=== PATIENT | female | born 1950 | race African-American/Black ===

== ENCOUNTER → 2020-05-23 10:29 | Outpatient (BNVA) | payer OTHER, SELFPAY | PROVIDERS: Visit Provider Internal Medicine Gastroenterology | DX: K29.70 Gastritis, unspecified, without bleeding (principal); K76.0 Fatty (change of) liver, not elsewhere classified | CPT/HCPCS: Q3014 ==

== ENCOUNTER 2024-09-07 15:11 | Emergency (ER) | payer OTHER, SELFPAY ==
--- NOTE | ~2024-09-07 | XR_ITS ---
EXAMINATION: XR ANKLE, RIGHT CLINICAL INFORMATION: wound medial ankle COMPARISON: None available. TECHNIQUE: AP, lateral, and mortise views of the right ankle. FINDINGS: No fracture. Alignment is anatomic. No erosions. Joint spaces are maintained. Mortise is intact. Talar dome is normal. Tiny plantar calcaneal spur. No ankle joint effusion. Soft tissues are normal. XR/XR ankle RT 2V IMPRESSION: Normal right ankle. Electronically signed by: Jorgito Hunter MD 09/07/2024 04:34 PM EDT
[2024-09-07 15:25] VITALS: BP 138/78; BP 168/86; PULSE 89; PULSE 91; RESP 18; TEMP 36.9; O2SAT 100; BMI 35.4
--- NOTE | 2024-09-07 15:32 | ED.WOUNDLAC ---
HPI - Wound/Laceration General Chief Complaint: Wound/Laceration Stated Complaint: Right Ankle wound Time Seen by Provider: 09/07/24 15:30 Source: patient, RN notes reviewed and old records reviewed Mode of arrival: ambulatory Limitations: no limitations History of Present Illness ED Provider: Juana HPI narrative: Patient is a 73-year-old female with history of SLE, hepatic steatosis presenting to the emergency department from assisted living with complaint of wound to right ankle. States initially developed as a small abscess. She saw her PCP who put her on a 10-day course of doxycycline. She reports that the infection did not improve with the doxycycline, so she was started on keflex. She will finish the course of keflex on Thursday, 09/09. Denies fevers, chilss, body aches. Reports pain is severe and radiates up lower leg. Onset (ago): day(s) Associated symptoms: pain Treatments prior to arrival: other Related Data Home Medications ?Medication ?Instructions ?Recorded ?Confirmed budesonide-formoterol HFA 160 2 puff inhalation BID 05/23/20 05/26/20 mcg-4.5 mcg/actuation aerosol inhaler (Symbicort) calcium carbonate (Calcium 600) 600 mg PO DAILY 05/23/20 05/26/20 ceramides 1,3,6-II (CeraVe topical 1 appl topical BID-QID PRN 05/23/20 05/26/20 cream) cholecalciferol (vitamin D3) 50 50 mcg PO DAILY 05/23/20 05/26/20 mcg (2,000 unit) tablet diclofenac sodium 1 % topical gel 2 g topical QID 05/23/20 05/26/20 gabapentin 400 mg capsule 400 mg PO TID 05/23/20 05/26/20 mecobalamin (vitamin B12) 5,000 250 mcg PO DAILY 05/23/20 05/26/20 mcg lozenge omeprazole 40 mg capsule,delayed 40 mg PO DAILY 05/23/20 05/26/20 release oxygen-air delivery systems ##1 05/23/20 05/26/20 vitamin E 200 unit capsule 200 unit PO DAILY 05/23/20 05/26/20 Allergies Allergy/AdvReac Type Severity Reaction Status Date / Time aspirin [ASPIRIN] Allergy Unknown CHEST Verified 09/07/24 15:30 PAIN, SOB caffeine [CAFFEINE] Allergy Unknown CHEST PAIN Verified 09/07/24 15:30 Iodinated Contrast Media Allergy Unknown RASH Verified 09/07/24 15:30 [IV CONTRAST] iodine [IODINE] Allergy Unknown RASH, Verified 09/07/24 15:30 hives, latex [LATEX] Allergy Unknown RASH Verified 09/07/24 15:30 meperidine [From DEMEROL] Allergy Unknown VOMITING Verified 09/07/24 15:30 naproxen [NAPROXEN] Allergy Unknown VOMITING Verified 09/07/24 15:30 nickel [NICKEL] Allergy Unknown RASH,ITCHY Verified 09/07/24 15:30 penicillin V Allergy Unknown SOB, hives Verified 09/07/24 15:30 Penicillins [PENICILLINS] Allergy Unknown RASH Verified 09/07/24 15:30 strawberry [STRAWBERRY] Allergy Unknown RASH Verified 09/07/24 15:30 NSAIDS (Non-Steroidal AdvReac Intermediate DIARRHEA Verified 09/07/24 15:30 Anti-Inflamma [NSAIDS (NON-STEROIDAL ANTI-INFLAMMA] caffeine Allergy Unknown Rash Uncoded 09/07/24 15:30 IVP dye Allergy Unknown Hives Uncoded 09/07/24 15:30 Latex Allergy Unknown Hives Uncoded 09/07/24 15:30 Latex Gloves Allergy Unknown rash, Uncoded 05/20/19 00:00 itching nickel Allergy Unknown Hives Uncoded 09/07/24 15:30 srawberries Allergy Unknown Hives Uncoded 09/07/24 15:30 Review of Systems Review of Systems: As per HPI Yes all other systems are reviewed and are negative Constitutional: Constitutional: Reports as per HPI PMFSH Past Medical History Medical History (Updated 09/07/24 @ 16:50 by Bhargavi Arias NP) Systemic lupus erythematosus (SLE) in adult Gastritis Hepatic steatosis Surgical History (Updated 05/26/20 @ 14:38 by Kitty White MD) History of esophagogastroduodenoscopy (EGD) Hx of colonoscopy Family History Family History (Updated 05/23/20 @ 10:38 by VEENA Garcia) Father Hypertension Stroke Mother Hypertension Asthma Rheumatoid arthritis Brother No problems noted. Sister Breast cancer Social History Social History (Updated 05/23/20 @ 10:39 by VEENA Garcia) Household Members: None Alcohol intake: never Advance Directives: No Advance Directives Information Provided: No Current occupational status: retired and disabled Physical Exam Vital Signs: Vital Signs: Last Vital Signs Temp 98.4 F 09/07/24 15:25 Pulse 89 09/07/24 15:25 Resp 18 09/07/24 15:25 BP 138/78 09/07/24 15:25 Pulse Ox 100 09/07/24 15:25 O2 Del Method Room Air 09/07/24 15:25 BMI result Body Mass Index 35.4 Vital signs have been reviewed and appear to be correct. Blood pressure normal. Heart rate normal. Respiratory rate normal. Temperature normal. Oxygen saturation normal. Const: General: cooperative, healthy appearing and no acute distress Orientation/consciousness: oriented to person, oriented to place, oriented to time and patient oriented x3 Limitations: no limitations HEENT: Head: Yes normocephalic and Yes atraumatic Ears: external ears normal General nose exam: Normal external nose present Face and sinus: Yes face symmetric Mouth: oropharynx normal and moist mucous membranes Throat: Yes uvula midline Eyes: Pupils: Equal, round and reactive pupils present Neck: Neck: Yes normal visual inspection and Yes supple Resp: Effort & Inspection: normal respiratory effort and able to speak in complete sentences Auscultation: clear to auscultation bilaterally Cardio: Rate: regular rate Rhythm: regular rhythm Heart sounds: S1 normal heart sound present and S2 normal heart sound present GI: Palpation (GI): Soft to palpation and nontender Auscultation: normoactive bowel sounds : General: Yes no CVA tenderness Back/Spine/Pelvis: Back: no CVA tenderness Skin: Other: 1cm diameter open wound to medial right ankle without surrounding erythema or warmth, scant amount of purulent drainage, see photo General skin exam: elasticity normal and turgor normal Neuro: General: oriented to person, oriented to place, oriented to time, patient oriented x3, moves all extremities, no focal motor deficits and CN's II-XI intact bilaterally Cranial nerves: Yes Equal, round and reactive pupils present Cognition (Neuro): normal cognition Extrem: General: Yes full ROM, Yes no pedal edema and Yes no calf tenderness Psych: Mental Status: mental status grossly normal Affect: normal affect Thought process: Normal thought process present Medical Decision Making Medical Decision Making MDM Narrative: Patient is a 73-year-old female with history of SLE, hepatic steatosis presenting to the emergency department from assisted living with complaint of wound to right ankle. On exam patient is awake, A+Ox3, VS WNL, afebrile, normal neurological exam without focal deficits, physical exam findings as above. Given reported symptoms and physical exam findings, initial differential includes but is not limited to wound, cellulitis, osteomyelitis. Labs notable for no leukocytosis or left shift, normal lactic, normal ESR/CRP. X-ray right ankle notable for no evidence of osteomyelitis. My interpretation is in agreement with the radiologist's interpretation. Wound does not appear cellulitic on exam. Results discussed with patient and all questions answered. Advised patient that wound appears to be healing appropriately, but that she should complete the full course of cephalexin as prescribed. Wound culture obtained, patient will be contacted with any positive results. Return precautions discussed at bedside. Patient verbalized understanding of and agreement with plan. Differential Diagnosis Differential Diagnoses: The differential diagnosis associated with the presentation includes As per [facility] Admission/Observation Consideration of admission/observation: Escalation of care including admission/observation considered Patient would have been admitted to the hospital had their work up had any findings where hospital admission was appropriate and their clinical presentation warranted hospital admission. Lab Data [facility] Lab Attestation statement: I reviewed the patient's lab results. As per [facility] 09/07/24 16:11 09/07/24 16:11 Labs: Lab Results 09/07/24 Range/Units 16:11 WBC 6.2 (4.8-10.8) X10*3/uL RBC 3.74 L (4.20-5.50) X10*6/uL Hgb 10.9 L (12.0-16.0) g/dl Hct 31.1 L (37.0-47.0) % MCV 83.2 (80.0-98.0) fL MCH 29.1 (27.0-33.0) pg MCHC 35.0 (31.0-35.0) g/dl RDW 16.5 H (11.0-16.0) % Plt Count 191 (160-400) X10*3/uL MPV 12.0 (9.4-12.3) fL Immature Gran % (Auto) 0.3 (0.0-0.4) % Neut % (Auto) 69.6 (45-73) % Lymph % (Auto) 18.7 L (20-40) % Falls % (Auto) 9.2 (2-11) % Eos % (Auto) 1.6 (0-4) % Baso % (Auto) 0.6 (0-2) % Lymph # (Auto) 1.2 (1.2-4.9) X10*3/uL Falls # (Auto) 0.6 (0.1-1.2) X10*3/uL Eos # (Auto) 0.1 (0.0-0.4) X10*3/uL Baso # (Auto) 0.0 (0.0-0.2) X10*3/uL Abs Immat Gran (auto) 0.02 (0.00-0.03) X10*3/uL Absolute Neuts (auto) 4.3 (2.0-8.3) x10*3/uL Absolute Nucleated RBC 0.000 (0.0-0.012) X10*3/uL Nucleated RBC % (auto) 0.0 (0.0-0.2) /100WBC Sodium 145 (135-145) mmol/L Potassium 4.1 (3.3-5.1) mmol/L Chloride 113 H (96-108) mmol/L Carbon Dioxide 23 (22-29) mmol/L Anion Gap 13 (12-20) BUN 12 (9-16) mg/dL Creatinine 0.88 (0.5-1.4) mg/dL Estim Creat Clear Calc 59.0 Estimated GFR > 60 Random Glucose 84 (60-115) mg/dL Lactic Acid 0.8 (0.5-2.0) mmol/L Calcium 9.8 (8.4-10.2) mg/dL Total Bilirubin 0.5 (0.0-1.0) mg/dL AST 32 H (5-31) U/L ALT 22 (0-31) U/L C-Reactive Protein 0.24 (< or = 0.50) mg/dL Total Protein 7.2 (6.5-8.0) g/dL Albumin 4.3 (3.5-5.0) g/dL Independent Interpretation I performed an independent interpretation of an: Plain X-Ray Interpretation: No evidence of osteomyelitis on x-ray right ankle. Radiology Impression Discussion of test interpretation with radiology: I have reviewed the radiologist's reading. Radiologist Impression: XR/XR ankle RT 2V IMPRESSION: Normal right ankle. External Record Review External record reviewed: Inpatient record, Office record and Outpatient record Discharge Plan Discharge Clinical Impression: Wound of right ankle Patient Disposition: Home, Self-Care Instructions: Acute Wounds (DC) Additional Instructions: You were evaluated in the emergency department today for a wound to your right ankle. The wound appears to be healing appropriately and your labs were reassuring. Your x-ray did not show any evidence of infection in your bone. We recommend that you complete the full course of cephalexin (Keflex) prescribed to you previously. A wound culture was obtained at your visit today, you will be contacted if any changes in your treatment needs to be made. Follow up with your primary care provider. Return to the emergency department if you develop new redness, swelling, thick yellow drainage, redness streaking up your leg, fever, or any other new or concerning symptoms. Prescriptions: No Action calcium carbonate [Calcium 600] 600 mg calcium (1,500 mg) tablet 600 mg PO DAILY cholecalciferol (vitamin D3) 50 mcg (2,000 unit) tablet 50 mcg PO DAILY gabapentin 400 mg capsule 400 mg PO TID CeraVe Cream 1 appl topical BID-QID PRN budesonide-formoterol [Symbicort] 160-4.5 mcg/actuation HFA aerosol inhaler 2 puff inhalation BID omeprazole 40 mg capsule,delayed release(DR/EC) 40 mg PO DAILY diclofenac sodium 1 % gel 2 g topical QID Rx Instructions: apply to single elbow, wrist or hand; for hand includes palm/fingers/back of hand mecobalamin (vitamin B12) 5,000 mcg lozenge 250 mcg PO DAILY Rx Instructions: allow to dissolve in mouth OR may chew lightly before swallowing vitamin E 200 unit capsule 200 unit PO DAILY (DME) oxygen-air delivery systems Device See Rx Instructions .ROUTE .MEDSUPPLY Qty: 1 Rx Instructions: As directed Print Language: Mongolian
[2024-09-07 16:18] LABS: MANUAL DIFF FLAG NO
[2024-09-07 16:21] LABS: Basophils Percent Auto 0.6 % (0-2); Eosinophils Absolute Auto 0.1 X10*3/uL (0.0-0.4); Eosinophils Percent Auto 1.6 % (0-4); Hematocrit 31.1 % (37.0-47.0); Hemoglobin 10.9 g/dl (12.0-16.0); Imm Gran Abs Auto 0.02 X10*3/uL (0.00-0.03); Imm Gran Pct Auto 0.3 % (0.0-0.4); Lymphocytes Absolute Auto 1.2 X10*3/uL (1.2-4.9); Lymphocytes Percent Auto 18.7 % (20-40); Mean Corpuscular Hemoglobin 29.1 pg (27.0-33.0); Mean Corpuscular Volume 83.2 fL (80.0-98.0); Monocytes Absolute Auto 0.6 X10*3/uL (0.1-1.2); Monocytes Percent Auto 9.2 % (2-11); Neutrophils Absolute Auto 4.3 x10*3/uL (2.0-8.3); Neutrophils Percent Auto 69.6 % (45-73); Platelet Count 191 X10*3/uL (160-400); Red Blood Count 3.74 X10*6/uL (4.20-5.50); Red Cell Distribution Width 16.5 % (11.0-16.0); White Blood Count 6.2 X10*3/uL (4.8-10.8)
[2024-09-07 16:34] LABS: Lactic Acid 0.8 mmol/L (0.5-2.0)
[2024-09-07 16:36] LABS: Alanine Aminotransferase 22 U/L (0-31); Albumin Level 4.3 g/dL (3.5-5.0); Anion Gap 13 (12-20); Aspartate Amino Transferase 32 U/L (5-31); Bilirubin Total 0.5 mg/dL (0.0-1.0); Blood Urea Nitrogen 12 mg/dL (9-16); C Reactive Protein 0.24 mg/dL (< or = 0.50); Calcium 9.8 mg/dL (8.4-10.2); Carbon Dioxide 23 mmol/L (22-29); Chloride 113 mmol/L (96-108); Estimated Glomerular Filt Rate > 60; Glucose Random 84 mg/dL (60-115); Potassium 4.1 mmol/L (3.3-5.1); Sodium 145 mmol/L (135-145); Total Protein 7.2 g/dL (6.5-8.0)
[2024-09-07 16:42] LABS: Alkaline Phosphatase 82 U/L (39-117)
[2024-09-07 17:05] VITALS: BP 109/46; PULSE 83; RESP 14; TEMP 37; O2SAT 100
[2024-09-07 17:08] VITALS: BP 109/46; PULSE 83; RESP 14; TEMP 37; O2SAT 100
[2024-09-07 17:35] LABS: Erythrocyte Sedimentation Rate 31 MM/HR (0-20)
--- OUTSIDE RECORDS SUMMARY | 2024-09-07 18:09 | XMS_ITS ---
Author Organization [facility] Address [address] [address] Phone Care Team Providers Care Hunting Sales Leader Name Role Phone Malgorzata Blanton TERRAZZO WORKER APPRENTICE Primary Care Provider [phone] Program of [facility] Status:Enrolled (Active) Start date:02/06/2019 Enrollment date:02/06/2019 Related social drivers of health:Housing Instability, Financial Risk, Transportation, Social Isolation, Food Risk Overview This episode will track PACE documentation. Case Team Name Relationship Phone Malgorzata Blanton TERRAZZO WORKER APPRENTICE Nurse Practitioner Elsa Go Recreational Therapist Fani Bartlett RN Recording Studio Set Up Worker Yasemin Kern MEAT LUGGER Legal Operations Manager Michael Mascorro RD Dietitian Charli Byrne PT Physical Therapist Aries Mcknight [place] Yam Curer Dinorah Crow Asbestos Worker Helper Abdoul Joseph Spiritual Care Izabela Ling OT Occupational Therapist Nettie Chawla RN Registered Nurse [place]io MD Covering Physician Continued Care and Services Coordination
--- OUTSIDE RECORDS SUMMARY | 2024-09-07 18:09 | XMS_ITS | Clinical Summary ---
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 Name Role Phone Malgorzata Blanton BINDER FIXER Primary Care Provider [phone] Allergies Active Allergy Reactions Criticality Noted Date Comments Aspirin 07/01/2024 GI UPSET, HIVES, vasoconstriction Meperidine 07/01/2024 GI UPSET, HIVES, HEADACHE Iodine 07/01/2024 IODINE AND RELATED COMPOUNDS CLASSIFICATION, GI UPSET, HIVES, HEADACHE Lactose 07/01/2024 Latex 07/01/2024 Nickel 07/01/2024 Nsaids (Non-Steroidal Anti-Inflammatory Drug) 07/01/2024 GI UPSET, HIVES- pud, bleeding ulcer in 2008 Other 07/01/2024 Caffine, Camomile, Lactose, Penicillins 07/01/2024 GI UPSET, HIVES [facility] 07/01/2024 Tramadol 07/01/2024 ppt reports vomiting Medications red [id number] [id number] mg capsuleIndicati ons:Peripheral vascular disease (CMS/HCC),Ather osclerosis of [place] artery of both lower extremities, with unspecified presence of clinical manifestation,H ypercholesterol emia Take 1 capsule by mouth 1 (one) time each day for 28 days. 100 capsule 3 08/20/19 25 2024 Active calcium carbonate-vitam in D3 600 mg-20 mcg (800 unit) tabletIndicatio ns:Other specified disorders of bone density and structure, multiple sites,Osteopeni a of lumbar spine Take 1 each by mouth 2 (two) times daily after breakfast and lunch for 28 days. 1 tab(s) orally ONCE DAILY 56 tablet 11 08/20/19 25 2024 Active ceramides cream (CERAVE) cream moisturizing creamIndication s:Dry skin Apply topically if needed (may use as needed for dry skin). ceramides 1,3,6-II (CeraVe) - cream 1 application to (affected) skin 2 times per day 200 g 3 08/20/19 25 2024 Active ferrous gluconate (FERGON) 324 mg (38 mg iron) tabletIndicatio ns:Anemia, pernicious Take 1 tablet (324 mg total) by mouth 1 (one) time each day. 90 each 08/20/19 25 2025 Active cephalexin (KEFLEX) 250 mg capsuleIndicati ons:Cellulitis of right ankle Take 2 capsules (500 mg total) by mouth 2 (two) times a day for 7 days. 28 each 09/02/19 25 2024 Active calcium carbonate-vitam in D3 600 mg-20 mcg (800 unit) tablet 1 tab(s) orally ONCE DAILY 2024 Discontinued ceramides cream (CERAVE) cream moisturizing cream ceramides 1,3,6-II (CeraVe) - cream 1 application to (affected) skin 2 times per day 2024 Discontinued(R eorder) cholecalciferol (Vitamin D3) 25 mcg (1,000 unit) tablet 1 tab(s) orally once a day 2024 Discontinued(T herapy completed) cyanocobalamin (VITAMIN B-12) 250 mcg tablet 1 tab by mouth daily 2024 Discontinued(T herapy completed) gabapentin (NEURONTIN) 400 mg capsule 1 cap(s) orally TID AM, NOON, HS 2024 Discontinued(I neffective) vitamin E, dl, acetate, 90 mg (200 unit) capsule 1 cap(s) orally once a day 2024 Discontinued(T herapy completed) doxycycline (VIBRAMYCIN) 100 mg capsuleIndicati ons:Cellulitis of right ankle Take 1 capsule (100 mg total) by mouth 2 (two) times a day for 10 days. Take with at least 8 ounces (large glass) of water, do not lie down for 30 minutes after. Administer 2 hours before or after multivitamins, antacids, or other products containing polyvalent cations (i.e., calcium, iron, magnesium, selenium, zinc). 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 Continue to monitor. Open wound of right ankle 08/17/2024 Other specified disorders of bone density and structure, multiple sites 07/01/2024 Overview (07/01/2024): DEXA: Z13.820, M85.89 Assessment & Plan (08/19/2024 11:19 AM EDT): -weight bearing exercise recommended. Checking Vit D level. (Normal) Takes calcium supplements. Orders: calcium carbonate-vitamin D3 600 mg-20 mcg (800 unit) tablet; Take 1 each by mouth 2 (two) times daily after breakfast and lunch for 28 days. 1 tab(s) orally ONCE DAILY Anemia, pernicious 07/01/2024 Assessment & Plan (08/19/2024 11:19 AM EDT): CBC ordered. Results included in letter to Muriel, that she is still anemic. Will send in iron supplements to her home. COPD (chronic obstructive pulmonary disease) Assessment & Plan (08/19/2024 11:19 AM EDT): Asymptomatic. No symptoms after she became vegan, 8 years ago. Will continue to monitor. Asthma 07/01/2024 Assessment & Plan (08/19/2024 11:19 AM EDT): Asymptomatic. Will monitor. Ganglion cyst of wrist, right 07/01/2024 Assessment & Plan (08/19/2024 11:19 AM EDT): No longer has it. Vitamin D deficiency 07/01/2024 Assessment & Plan (08/19/2024 11:19 AM EDT): Orders: Vitamin D 25 hydroxy Note: normal Vit D level. No need for supplementation. Will monitor routinely. Dry skin 07/01/2024 Assessment & Plan (08/19/2024 11:19 AM EDT): Has Cerave cream. Reordering. Continue to monitor. Orders: ceramides cream (CERAVE) cream moisturizing cream; Apply topically if needed (may use as needed for dry skin). ceramides 1,3,6-II (CeraVe) - cream 1 application to (affected) skin 2 times per day Fatty liver disease, nonalcoholic 07/01/2024 Assessment & Plan (08/18/2024 5:17 PM EDT): LFTs are currently normal. Will continue to monitor. GERD (gastroesophageal reflux disease) Assessment & Plan (08/19/2024 11:19 AM EDT): -she took herself off the PPI, feels better Hiatal hernia 07/01/2024 Assessment & Plan (08/19/2024 11:19 AM EDT): No symptoms of GERD or discomfort. Will continue to monitor. Hypercholesterolemia 07/01/2024 Assessment & Plan (08/19/2024 11:19 AM EDT): CMP and lipids ordered. Results evaluated, and wnl. During appt, had discussed red rice yeast with Muriel, and she is willing to take a trial of this. Stress incontinence 07/01/2024 Assessment & Plan (08/19/2024 11:19 AM EDT): -wears absorbant undergarments Urinary frequency 07/01/2024 Assessment & Plan (08/19/2024 11:19 AM EDT): None currently. Monitor. Nocturia 07/01/2024 Assessment & Plan (08/19/2024 11:19 AM EDT): Not really a concern currently. Urinary urgency 07/01/2024 Assessment & Plan (08/19/2024 11:19 AM EDT): Inactive currently. Lupus (systemic lupus erythematosus) 07/01/2024 Assessment & Plan (08/19/2024 11:19 AM EDT): Asymptomatic after going vegan, 8 yrs ago. She is monitoring herself for any symptoms and will keep in close contact with clinic staff if this recurrs. Can start on medications which have worked well in the past and refer JOSH to clinical transformation specialist. Breast nodule 07/01/2024 Assessment & Plan (08/19/2024 11:19 AM EDT): Remote. Refer for screening mammogram, routine. Orders: [facility] Mammo Digital Screening bilat Morbidly obese 07/01/2024 Assessment & Plan (08/17/2024 3:54 PM EDT): Has lost weight and seems closer to normal BMI. No abdominal obesity (decreased risk of heart disease). Has some fat on hips and thighs. Obstructive sleep apnea 07/01/2024 Overview (07/01/2024): CPAP Assessment & Plan (08/19/2024 11:19 AM EDT): Nightly uses her CPAP. We discussed the increased mortality without CPAP. Osteoarthritis 07/01/2024 Overview (07/01/2024): Osteoarthritis Knees, Hips, Shoulder, Right Assessment & Plan (08/19/2024 11:19 AM EDT): Currently has OA but does not want any surgery due to risks. Will let us know if knee and hip pain progress. She remains active. Cervical spondylosis with radiculopathy 07/01/19 25 Assessment & Plan (08/19/2024 11:19 AM EDT): Occasional neck pain, but tolerable per pt. Will monitor. Other spondylosis with radiculopathy, lumbar reg ion 07/01/2024 Overview (07/01/2024): Spondylosis with Radiculpathy Cervical & Lumbar Assessment & Plan (08/19/2024 11:19 AM EDT): Asymptomatic currently, improved with weight loss, per pt Thoracic kyphosis 07/01/2024 Assessment & Plan (08/19/2024 11:19 AM EDT): Has kyphosis, as had her mother. Not disabling. Continue to monitor. Leg length discrepancy 07/01/2024 Overview (07/01/2024): Left Leg Length Discrepancy Assessment & Plan (08/19/2024 11:19 AM EDT): Continues to be able to ambulate without much difficulty. May benefit from footwear adjusted to discrepancy. Will ask Therapy if they have any recommendations. Osteopenia 07/01/2024 Assessment & Plan (08/19/2024 11:19 AM EDT): Recommended weight bearing exercise, dietary supplements. Orders: calcium carbonate-vitamin D3 600 mg-20 mcg (800 unit) tablet; Take 1 each by mouth 2 (two) times daily after breakfast and lunch for 28 days. 1 tab(s) orally ONCE DAILY Peripheral vascular disease 07/01/2024 Assessment & Plan (08/18/2024 5:17 PM EDT): (Currently asymptomatic. Will continue to monitor.) Atherosclerosis of both lower extremities 2024 Overview (07/01/2024): Atherosclerosis of Extremities Assessment & Plan (08/19/2024 11:19 AM EDT): Referral to vascular surgery. Orders: red [id number] mg capsule; Take 1 capsule by mouth 1 (one) time each day for 28 days. Ambulatory referral to Vascular Surgery; Future Hyperkeratosis 07/01/2024 Overview (07/01/2024): Hyperkeratotic Lesions Assessment & Plan (08/19/2024 11:19 AM EDT): Cerave ordered, to be used prn. Hammertoe, bilateral 07/01/2024 Assessment & Plan (08/19/2024 11:19 AM EDT): Chronic condition, not disabling. Has routine f/u with Podiatry. Orders: Ambulatory referral to Podiatry Hallux valgus, bilateral 07/01/2024 Assessment & Plan (08/19/2024 11:19 AM EDT): Chronic issue. No current need to treat. Orders: Ambulatory referral to Podiatry Onychomycosis 07/01/2024 Assessment & Plan (08/19/2024 11:19 AM EDT): Referring to Podiatry for routine f/u. Orders: Ambulatory referral to Podiatry Onychodystrophy 07/01/2024 Assessment & Plan (08/19/2024 11:19 AM EDT): Referring to Podiatry for routine f/u. Orders: Ambulatory referral to Podiatry Bilateral bunions 07/01/2024 Assessment & Plan (08/19/2024 11:19 AM EDT): Referring to Podiatry for routine f/u. Not severe currently. Orders: Ambulatory referral to Podiatry Callus 07/01/2024 Assessment & Plan (08/19/2024 11:19 AM EDT): Referring to Podiatry for routine f/u. Orders: Ambulatory referral to Podiatry Post traumatic stress disorder 07/01/2024 Assessment & Plan (08/19/2024 11:19 AM EDT): Overall in good spirits, with a positive attitude towards life and health. Will monitor closely. Pulmonary hypertension 07/01/2024 Assessment & Plan (08/19/2024 11:19 AM EDT): Pt reports having a PFT which was normal, several years (circa 2019) ago. Asymptomatic. Tricuspid regurgitation 07/01/2024 Assessment & Plan (08/19/2024 11:19 AM EDT): Currently asymptomatic. Will continue to monitor. Raynaud's syndrome 07/01/2024 Overview (07/01/2024): Raynaud's Syndrome due to Systemic lupus erythematosus Assessment & Plan (08/19/2024 11:19 AM EDT): Currently asymptomatic. Will continue to monitor. Rectocele 07/01/2024 Assessment & Plan (08/19/2024 11:19 AM EDT): -had a hysterectomy. No constipation or root ball. Complex partial seizure 07/01/2024 Assessment & Plan (08/19/2024 11:19 AM EDT): -has not had any seizures for 3 years. Will monitor carefully. Benign essential tremor 07/01/2024 Assessment & Plan (08/19/2024 11:19 AM EDT): Not seen at this visit. Mild cataract 07/01/2024 Overview (07/01/2024): Cataracts, Mixed, Mild OU Assessment & Plan (08/19/2024 11:19 AM EDT): No surgery yet. Pt will let us know when she is ready. Recommend annual eye exam and retinal scan as well as checking for cataract progression. 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 Orders: Ambulatory referral to Optometry Myopic astigmatism of both eyes 07/01/2024 Assessment & Plan (08/19/2024 11:19 AM EDT): Referred to routine eye exam, and to check for glaucoma, and do a retinal scan. Presbyopia of both eyes 07/01/2024 Assessment & Plan (08/19/2024 11:19 AM EDT): Referred to routine eye exam. 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; Pulmonary emphysema, unspecified emphysema type (CMS/HCC); Mild intermittent asthma, unspecified whether complicated; Hiatal hernia; Obstructive sleep apnea; Peripheral vascular disease (CMS/HCC); Atherosclerosis of [place] artery of both lower extremities, with unspecified presence of clinical manifestation (CMS/HCC); Pulmonary hypertension (CMS/HCC); Tricuspid valve insufficiency, unspecified etiology; Raynaud's disease without gangrene; Morbidly obese (CMS/HCC); Vitamin D deficiency; Fatty liver disease, nonalcoholic; Gastroesophageal reflux disease without esophagitis; Rectocele; Stress incontinence; Other specified disorders of bone density and structure, multiple sites; Ganglion cyst of wrist, right; Dry skin; Primary osteoarthritis of other site; Kyphosis of thoracic region, unspecified kyphosis type; Leg length discrepancy; Osteopenia of lumbar spine; Hammertoe, bilateral; Hallux valgus, bilateral; Onychomycosis; Onychodystrophy; Bilateral bunions; Callus; Hypercholesterolemia; Anemia, pernicious; Systemic lupus erythematosus, unspecified SLE type, unspecified organ involvement status (CMS/HCC); Urinary frequency; Nocturia; Breast nodule; Urinary urgency; Hyperkeratosis; Post traumatic stress disorder; Myopic astigmatism of both eyes; Presbyopia of both eyes from Last 3 Months Immunizations Name Administration Dates Next Due Influenza, Unspecified 05/18/2014 Moderna SARS-CoV-2 COVID-19, mRNA, LNP-S, preservative free 07/23/2021,07/23/2021,07/22/2021 Pfizer SARS-CoV-2 COVID-19, mRNA, LNP-S, preservative free 02/27/2022 Pneumococcal conjugate 13 va lent (Prevnar 13, PCV13) 2mo and older 04/09/2016 Pneumococcal polysaccharide 23 valent (Pneumovax 23) 2yo and older 10/04/2013 Td Tetanus diptheria (Tdvax) 7yo and older 10/26 Tdap Tetanus diptheria acell ular pertussis (Boostrix; Adacel) 7yo and older 02/03/2020 Zoster recombinant (Shingrix ) 19yo and older 02/07/2020,02/03/2020 Surgical History Surgery Date Site/Laterality Comments HYSTERECTOMY PROCEDURE: HISTORICAL HYSTERECTOMY; COMMENT: 1 ovary left - eventually removed? BREAST SURGERY age 25 Right PROCEDURE: TX UNLISTED PROCEDURE BREAST; COMMENT: cyst removed neg BREAST SURGERY age 44 Right PROCEDURE: TX UNLISTED PROCEDURE BREAST; COMMENT: reconstuctive surg to correct inverted nipple Medical History Medical History Date Comments Sleep apnea 12/21/2013 DX:Sleep apnea Peptic ulcer of stomach 2005 DX:Pepti c ulcer of stomach; COMMENT: while on NSAID's Raynaud's phenomenon (secondary) 12/21/2013 DX:Raynaud's phenomenon (secondary) History of asthma - DX:History of asthma; COMMENT: not symptomatic recently Osteoarthritis of right knee 12/21/2013 DX: Osteoarthritis of right knee Osteoarthritis of lumbar spine 12/21/2013 D X:Osteoarthritis of lumbar spine Systemic lupus erythematosus (CMS/HCC) 12/21/2013 DX:Systemic lupus erythemato alexi (HCC); COMMENT: Onset 1988. Flare in 2010 - steroids and hydroxychloroquine 2013 just on hydroxychloroquine Complex partial seizure (CMS/HCC) 11/17/2017 DX:Complex partial seizure (HCC) Wears dentures History of diverticulosis History of herpes simplex infection DX: H/O Herpes Simplex Virus, Oral History of herpes zoster H/O HZV Left 2nd Thoracic Dermatone History of vertigo History of pathological frac ture of vertebra H/O Thoracic 7 Wedge Fractur e Family History Medical History Relation Name Comments Arthritis Brother Breast cancer Maternal Grandfather Arthritis Mother RA Heart attack Paternal Grandmother Arthritis Sister dx 65 Breast cancer Sister dx 65 Relation Name Status Comments Brother Maternal Grandfather Mother Paternal Grandmother Sister dx 65 Alive Social History Tobacco Use Types Packs/Day Years Used Date Smoking Tobacco: Never Smokeless Tobacco: Never Tobacco Cessation:Counseling Given: Not Answered Comments:Never smoked tobacco Alcohol Use Standard Drinks/Week Comments Not Asked 0 (1 standard drink = 0.6 oz pur e alcohol) Comments Unknown Sex and Gender Information Value Date Recorded Sex Assigned at Not on file Legal Sex Female 8:04 PM EST Gender Identity Not on file Sexual Orientation Not on file Obstetrics History Last Filed Vital Signs Vital Sign Reading Time Taken Comments Blood Pressure 140/62 08/19/2024 10:38 AM EDT Pulse 91 08/19/2024 10:38 AM EDT Temperature 36.3 ??C (97.4 ??F) 08/19/2024 10:38 AM E DT Respiratory Rate 16 02/25/2024 2:57 PM EDT Oxygen Saturation 97% 08/19/2024 10:38 AM EDT Inhaled Oxygen Concentration - - Weight 93.9 kg (207 lb) 08/19/2024 10:38 AM EDT Height - - Body Mass Index - - Plan of Treatment Upcoming Encounters Date Type Department Care Team (Late st Contact Info) Description 10/10/2024 1:30 PM EDT Consult Vascular Surgery - [facility] [address] [facility] [address] [place] [id number] Елена Sam PA [address] [address] 02/13/2025 2:30 PM EDT [facility]ointment [facility] [address] [place] [id number] Health Maintenance Due Date Last Done Comments Zoster Vaccines (2 of 2) 04/03/2020 02/07/2020, 01/07 Pneumococcal Vaccine: 50+ Years (3 of 3 - PCV20 or PCV21) 04/09/2021 04/09/2016, 10/04/2013, 09/13/2013 Colorectal Cancer Screening: Colonoscopy 05/10/2022 Depression Screening 05/10/2022 Falls Risk Assessment 05/10/2022 Hepatitis C Screening 05/10/2022 Social Influencers of Health Screening 05/10/2022 RSV Immunization Adult Patients (1 - 1-dose 75+ series) 12/19/2023 COVID-19 Vaccine ( season) 2024 02/27/2022, 07/23/2021, 07/23/2021, Additional history exists Influenza Vaccine (Season Ended) 2025 04/09/2016, 03/01/2015, 05/18/2014, Additional history exists Cholesterol Screening (Lipid Panel) 08/17/2029 08/17/2024, 08/25/2023 DTaP,Tdap,and Td Vaccines (4 - Td or Tdap) 02/02/2030 02/03/2020, 09/13/2013, 10/26/2006 Osteoporosis Screening (Bone Density Screening) 10/13/2033 10/14/2023 Breast Cancer Screening Discontinued 02/24/2023, 02/21 HIB Vaccines Aged Out No longer eligi ble based on patient's age to complete this topic HPV Vaccines Aged Out No longer eligi ble based on patient's age to complete this topic Hepatitis A Vaccines Aged Out No long er eligible based on patient's age to complete this topic Hepatitis B Vaccines Aged Out No long er eligible based on patient's age to complete this topic IPV Vaccines Aged Out No longer eligi ble based on patient's age to complete this topic MMR Vaccines Aged Out No longer eligi ble based on patient's age to complete this topic Meningococcal ACWY Vaccine Aged Out N o longer eligible based on patient's age to complete this topic Meningococcal B Vacine Aged Out No lo nger eligible based on patient's age to complete this topic RSV Immunization Patients Under 20 months Aged Out No longer eligible based on patient's age to complete this topic Varicella Vaccines Aged Out No longer eligible based on patient's age to complete this topic Procedures Procedure Name Priority Date/Time Associated Diagnosis Comments VITAMIN D 25 HYDROXY Routine 08/17/2024 1:55 PM EDT Anemia, pernicious Hypercholesterolemia Vitamin D deficiency VITAMIN B12 AND FOLATE Routine 08/17/2024 1:55 PM EDT Morbidly obese (CMS/HCC) Fatty liver disease, nonalcoholic Hypercholesterolemia Anemia, pernicious LIPID PANEL WITH REFLEX TO DIRECT LDL Routine 08/17/2024 1:55 PM EDT Anemia, pernicious Hypercholesterolemia COMPREHENSIVE METABOLIC PANEL Routine 08/17/2024 1:55 PM EDT Anemia, pernicious Hypercholesterolemia THYROID STIMULATING HORMONE Routine 08/17/2024 1:55 PM EDT Anemia, pernicious Hypercholesterolemia CBC WITH AUTO DIFFERENTIAL Routine 08/17/2024 1:55 PM EDT Anemia, pernicious Hypercholesterolemia CBC AND DIFFERENTIAL Routine 08/17/2024 1:55 PM EDT Anemia, pernicious Hypercholesterolemia [facility] DEXA AXIAL SKELETON Routine 10/14/2023 7:47 AM EDT Age-related osteoporosis without current pathological fracture [facility] SCREENING DIGITAL Routine 02/24/2023 4:46 PM EDT Encounter for screening mammogram for malignant neoplasm of breast from Last 3 Months or Most Recently Relevant to Health Maintenance Results * Vitamin B12 and folate (08/17/2024 1:55 PM EDT) Vitamin B-12 329 799 - 900 pcg/mL LAB CHEMISTRY METHOD 08/17/2024 6:27 PM EDT [facility] Folate 16.7 2.8 - 17.0 ng/ml LAB CHEMISTRY METHOD 08/17/2024 6:27 PM EDT [facility] Blood Venous blood specimen / Unknown Venipuncture / Unknown 08/17/2024 1:55 PM EDT 08/17/2024 1:58 PM EDT us Santa Villavicencio MD LAB BLOOD ORDERABLES Final Result [facility] [address] [place] [address], [place] [phone] * (ABNORMAL) Lipid panel with reflex to direct LDL (08/17/2024 1:55 PM EDT) Pathologist [facility] Cholesterol 182 0 - 200 mg/dL LAB CHEMISTRY METHOD 08/17/2024 6:21 PM EDT [facility] Triglycerides 139 0 - 150 mg/dL LAB CHEMISTRY METHOD 08/17/2024 6:21 PM [facility] HDL 49 >=40 mg/dL LAB CHEMISTRY METHOD 08/17/2024 6:21 PM [facility] LDL Calculated 105(H) 0 - 100 mg/dL LAB CHEMISTRY METHOD 08/17/2024 6:21 PM [facility] VLDL Cholesterol Star 27.8 mg/dL LAB CHEMISTRY METHOD 08/17/2024 6:21 PM EDT [facility] Non HDL Chol. (LDL+VLDL) 133 <145 mg/dL LAB CHEMISTRY METHOD 08/17/2024 6:21 PM [facility] Chol/HDL Ratio 3.7 0.0 - 4.4 LAB CHEMISTRY METHOD 08/17/2024 6:21 PM [facility] Blood Venous blood specimen / Unknown Venipuncture / Unknown 08/17/2024 1:55 PM EDT 08/17/2024 1:58 PM EDT us Santa Villavicencio MD LAB BLOOD ORDERABLES Final Result [facility] [address] [place] [address], [place] [phone] * (ABNORMAL) CBC auto differential (08/17/2024 1:55 PM EDT) [facility] WBC 6.8 4.8 - 10.8 K/mcL LAB HEMETOLOGY METHOD 08/17/2024 5:58 PM EDT [facility] RBC 3.90 3.80 - 4.80 M/mcL LAB HEMETOLOGY METHOD 08/17/2024 5:58 PM EDT [facility] Hemoglobin 10.9(L) 11.5 - 16.0 g/dL LAB HEMETOLOGY METHOD 08/17/2024 5:58 PM EDT [facility] Hematocrit 33.4(L) 35.0 - 47.0 % LAB HEMETOLOGY METHOD 08/17/2024 5:58 PM EDT [facility] MCV 85.2 79.0 - 98.0 FL LAB HEMETOLOGY METHOD 08/17/2024 5:58 PM EDT [facility] MCH 27.8 27.0 - 32.0 pcg LAB HEMETOLOGY METHOD 08/17/2024 5:58 PM EDT [facility] MCHC 32.6 32.0 - 37.0 g/dL LAB HEMETOLOGY METHOD 08/17/2024 5:58 PM EDT [facility] RDW 15.1(H) 11.0 - 15.0 % LAB HEMETOLOGY METHOD 08/17/2024 5:58 PM EDT [facility] Platelets 205 130 - 400 K/mcL LAB HEMETOLOGY METHOD 08/17/2024 5:58 PM EDT [facility] MPV 12.6(H) 7.0 - 11.0 FL LAB HEMETOLOGY METHOD 08/17/2024 5:58 PM EDT [facility] NRBC 0.0 <1.0 % LAB [facility]OLOGY [facility]/17[facility]24 [facility] NRBC Absolute 0.00 <0.10 K/mcL LAB HEMETOLOGY METHOD 08/17/2024 5:58 PM EDT [facility] Neutrophils Relative 55.8 % LAB HEMETOLOGY METHOD 08/17/2024 5:58 PM EDT [facility] Lymphocytes Relative 30.5 % LAB HEMETOLOGY METHOD 08/17/2024 5:58 [facility] Monocytes Relative 9.8 % LAB HEMETOLOGY METHOD 08/17/2024 5:58 [facility] Eosinophils Relative 2.9 % LAB HEMETOLOGY METHOD 08/17/2024 5:58 [facility] Basophils Relative 0.6 % LAB HEMETOLOGY METHOD 08/17/2024 5:58 PM [facility] Immature Granulocytes Relative 0.4 % LAB HEMETOLOGY METHOD 08/17/2024 5:58 [facility] Neutrophils Absolute 3.81 1.50 - 7.00 K/mcL LAB HEMETOLOGY METHOD 08/17/2024 5:58 PM EDT [facility] Lymphocytes Absolute 2.08 1.00 - 5.00 K/mcL LAB HEMETOLOGY METHOD 08/17/2024 5:58 [facility] Monocytes Absolute 0.67 0.20 - 1.00 K/mcL LAB HEMETOLOGY METHOD 08/17/2024 5:58 PM [facility] Eosinophils Absolute 0.20 0.00 - 0.50 K/mcL LAB HEMETOLOGY METHOD 08/17/2024 5:58 PM EDT [facility] Basophils Absolute 0.04 0.00 - 0.20 K/[facility] HEMETOLOGY METHOD 08/17/2024 5:58 PM EDT [facility] Immature Granulocytes Absolute 0.03 0.00 - 0.03 K/[facility] LAB HEMETOLOGY METHOD 08/17/2024 5:58 PM EDT [facility] Blood Venous blood specimen / Unknown Venipuncture / Unknown 08/17/2024 1:55 PM EDT 08/17/2024 1:58 PM EDT Santa Villavicencio MD LAB BLOOD ORDERABLES Final Result Performing Organization Address City/[facility]/ZIP Co de Phone Number [facility] [address] [place] [address], * Vitamin D 25 hydroxy (08/17/2024 1:55 PM EDT) Vit D, 25-Hydroxy 45.9 30.0 - 80.0 ng/mL LAB CHEMISTRY METHOD 08/17/2024 6:20 PM EDT [facility] Blood Venous blood specimen / Unknown Venipuncture / Unknown 08/17/2024 1:55 PM EDT 08/17/2024 1:58 PM EDT Santa Villavicencio MD LAB BLOOD ORDERABLES Final Result [facility] [address] [place] [address], [place] [phone] * Thyroid stimulating hormone (08/17/2024 1:55 PM EDT) TSH 1.83 0.40 - 4.00 mcIU/mL LAB CHEMISTRY METHOD 08/17/2024 6:21 PM EDT [facility] Blood Venous blood specimen / Unknown Venipuncture / Unknown 08/17/2024 1:55 PM EDT 08/17/2024 1:58 PM EDT us Santa Villavicencio MD LAB BLOOD ORDERABLES Final Result [facility] [address] [place] [address], * (ABNORMAL) Comprehensive metabolic panel (08/17/2024 1:55 PM EDT) Pathologist [facility] Sodium 139 133 - 145 mmol/L LAB CHEMISTRY METHOD 08/17/2024 6:21 PM [facility] Potassium 4.0 3.5 - 5.5 mmol/L LAB CHEMISTRY METHOD 08/17/2024 6:21 PM [facility] Chloride 109 96 - 110 mmol/L LAB CHEMISTRY METHOD 08/17/2024 6:21 PM [facility] CO2 24 21 - 32 mmol/L LAB CHEMISTRY METHOD 08/17/2024 6:21 PM [facility] Anion Gap 6 3 - 11 LAB CHEMISTRY METHOD 08/17/2024 6:21 PM [facility] Glucose 96 70 - 100 mg/dL LAB CHEMISTRY METHOD 08/17/2024 6:21 PM [facility] BUN 17 5 - 25 mg/dL LAB CHEMISTRY METHOD 08/17/2024 6:21 PM [facility] Creatinine 1.04 0.50 - 1.10 mg/dL LAB CHEMISTRY METHOD 08/17/2024 6:21 PM [facility] eGFR 56(L) >=60 mL/min/1. 73m2 LAB CHEMISTRY METHOD 08/17/2024 6:21 PM [facility] Comment:Calculation based on the??Chronic Kidney Disease Epidemiology Collaboration (CKD-EPI) equation refit??without adjustment for race. BUN/Creatinine Ratio 16.3 LAB CHEMISTRY METHOD 08/17/2024 6:21 PM EDT [facility] Calcium 9.5 8.5 - 10.5 mg/dL LAB CHEMISTRY METHOD 08/17/2024 6:21 PM EDT [facility] AST (SGOT) 23 10 - 42 unit/L LAB CHEMISTRY METHOD 08/17/2024 6:21 PM EDT [facility] ALT (SGPT) 24 10 - 60 unit/L LAB CHEMISTRY METHOD 08/17/2024 6:21 PM EDT [facility] Alkaline Phosphatase 90 42 - 121 unit/L LAB CHEMISTRY METHOD 08/17/2024 6:21 PM EDT [facility] Total Protein 6.8 6.0 - 8.0 g/dL LAB CHEMISTRY METHOD 08/17/2024 6:21 PM [facility] Albumin 3.9 3.2 - 5.0 g/dL LAB CHEMISTRY METHOD 08/17/2024 6:21 PM EDT [facility] Total Bilirubin 0.4 0.0 - 1.4 mg/dL LAB CHEMISTRY METHOD 08/17/2024 6:21 PM EDT [facility] Blood Venous blood specimen / Unknown Venipuncture / Unknown 08/17/2024 1:55 PM EDT 08/17/2024 1:58 PM EDT us Santa Villavicencio MD LAB BLOOD ORDERABLES Final Result [facility] [address] [place] [address], [place] [phone] * ОЛЕГ DEXA AXIAL SKELETON (10/14/2023 7:47 AM EDT) Anatomical Region Laterality Modality Mammography 10/13/2023 12:5 6 PM EDT Narrative 10/14/2023 7:47 AM EDT [facility] Diagnostic Imaging Department [address] [place] [address] Patient: ??BRIAN DESAI ?/Age/Sex: 1950 72 - F Unit#: ??[id number] ? Location/Status: ??SPDIMAM/REG CLI ? Mnemonic/Ordering Site: ??MAMDEXAAX/SPMAM Ordering Physician: ??EVERTON KING MD Олег Dexa Axial Skeleton - 10/13/23 - [id number] Report Status:Signed HISTORY: ??The patient is a 72-year-old postmenopausal female with clinical concern for metabolic bone disease. FINDINGS: ??Dual energy x-ray absorptiometry of the lumbar spine and femurs is performed. The mean bone mineral density at L1-3 is 1.355 gm/cm2 which is 116% of that of young normals and 116% of that of age matched controls. This yields a T-score of 1.5 and a Z-score of 1.6 and there is therefore no evidence of osteoporosis or osteopenia here. The mean bone mineral density of the femurs bilaterally is 0.897 gm/cm2 which is 89% of that of young normals and 89% of that of age matched controls. ??This yields a T-score of -0.9 and a Z-score of -0.9 and there is therefore no evidence of osteoporosis or osteopenia here. However, the T-score of the right femoral neck is -2.6 which is diagnostic of osteoporosis. IMPRESSION: 1. Osteoporosis. ??There has been an increase of 3.3% in bone mineral density in the lumbar spine since the prior examination of 02/21/2014. ??There has been a decrease of 10.7% in bone mineral density in the right femur and a decrease of 3.9% in bone mineral density in the left femur. 2. FRAX analysis yields a 10-year probability of major osteoporotic fracture of 6.9% and a 10-year probability of hip fracture of 2.1%. Code 25907 Dictating Physician: ??EVERTON YOST MD Electronically Signed by: ??EVERTON YOST MD Dic Date/Time: ??10/14/23 0744 Sign date/Time: ??10/14/2347 Procedure Note Everton Yost MD - 01/25/2024 [facility] Diagnostic Imaging Department [address] [place] [address] Patient: GRICELBRIAN D.O.B./Age/Sex: 1950 - 72 - F Unit#: [id number] Location/Status: [facility] Mnem[facility] Ordering Physician: EVERTON KING MD Олег Dexa Axial Skeleton - 10/13/23 - [id number] Report Status:Signed HISTORY: The patient is a 72-year-old postmenopausal female withclinical concern for metabolic bone disease. FINDINGS: Dual energy x-ray absorptiometry of the lumbar spine and femursis performed. The mean bone mineral density at L1-3 is 1.355 gm/cm2 which is116% of that of young normals and 116% of that of age matched controls. Thisyields a T-score of 1.5 and a Z-score of 1.6 and there is therefore no evidenceof osteoporosis or osteopenia here. The mean bone mineral density of the femurs bilaterally is 0.897 gm/km9gnllc is 89% of that of young normals and 89% of that of age matched controls.This yields a T-score of -0.9 and a Z-score of -0.9 and there is therefore no evidence of osteoporosis or osteopenia here. However, the T-score of theright femoral neck is -2.6 which is diagnostic of osteoporosis. IMPRESSION: 1. Osteoporosis. There has been an increase of 3.3% in bone mineraldensity in the lumbar spine since the prior examination of 02/21/2014. There has lorelei decrease of 10.7% in bone mineral density in the right femur and adecrease of 3.9% in bone mineral density in the left femur. 2. FRAX analysis yields a 10-year probability of major osteoporoticfracture of 6.9% and a 10-year probability of hip fracture of 2.1%. Code 75360 Dictating Physician: EVERTON YOST MD Electronically Signed by: EVERTON YOST MD Dic Date/Time: 10/14/23 0744 Sign date/Time: 10/14/23 0747 us Everton King MD IMG BI PROCEDURES Final Re sult * ОЛЕГ SCREENING DIGITAL (02/24/2023 4:46 PM EDT) Anatomical Region Laterality Modality Mammography 02/24/2023 2:20 PM EDT Narrative 02/24/2023 4:46 PM EDT [facility] Diagnostic Imaging Department [address] [place] [address] Patient: ??BRIAN DESAI ?/Age/Sex: 1950 - 72 - F Unit#: ??[id number] ? Location/Status: ??SPDIMAM/REG CLI ? Mnemonic/Ordering Site: ??DIGSC/SPMAM Ordering Physician: ??EVERTON KING MD [facility] Screening Digital - 02/24/23 - 3 Report Status:Signed EXAM: [facility] Screening Digital EXAM DATE AND TIME: 02/24/2023 2:43 PM HISTORY: ??Screening. Excisional biopsy of the right breast prior to 2016, pathology benign. Sister and maternal grandmother had breast carcinoma. COMPARISON: ??02/18/22, 04/20/18, 07/28/17, 07/11/16 TECHNIQUE: Bilateral digital breast tomosynthesis was performed in the CC and MLO projections. Computer aided detection with Zinc software 3D 3.1 was employed. TISSUE DENSITY: b. There are scattered areas of fibroglandular density. FINDINGS: Focal asymmetry and architectural distortion are identified in the posterior 4 to 5:00 position of the right breast, stable from all the previous exams, most likely surgical scar. Asymmetry is also identified in the retroareolar area, long-term stable. A skin scar is marked in the periareolar area of the right breast. A 5 mm focal asymmetry is new in the upper inner left breast, middle depth, best seen on the tomosynthesis views. This is adjacent to multiple oil cysts which can be seen on prior studies. CC and MLO spot compression tomosynthesis views and full lateral tomosynthesis views of the left breast are recommended for further assessment. No grouped microcalcifications are seen. Vascular calcifications are present. IMPRESSION: 1. New 5 mm focal left breast asymmetry, for which additional views are recommended. The patient will be called back. 2. Stable mammographic appearance of the right breast, including surgical scar. No evidence of malignancy is seen. BI-RADS: ??Category 0: Incomplete - Need Additional Imaging Evaluation RECOMMENDATION(S): 1: Special mammographic view(s) needed LEFT Dictating Physician: ??ROSALBA FORREST MD Electronically Signed by: ??ROSALBA FORREST MD Dic Date/Time: ??02/24/231642 Sign date/Time: ??02/24/23 1646 Procedure Note Rosalba Forrest MD - 07/14/2023 [facility] Diagnostic Imaging Department [address] [place] [address] Patient: BRAIN DESAI /Age/Sex: 1950 - 72 - F Unit#: [id number] [facility] Mnemonic/Ordering Site: [facility] Ordering Physician: EVERTON KING MD [facility] Screening Digital - 02/24/23 - 0133 Report Status:Signed EXAM: [facility] Screening Digital EXAM DATE AND TIME: 02/24/2023 2:43 PM HISTORY: Screening. Excisional biopsy of the right breast prior [id number], pathology benign. Sister and maternal grandmother had breast carcinoma. COMPARISON: 02/18/22, 04/20/18, 07/28/17, 07/11/16 TECHNIQUE: Bilateral digital breast tomosynthesis was performed in the CCand MLO projections. Computer aided detection with iCAD Eyelation AI 3D 3.1was employed. TISSUE DENSITY: b. There are scattered areas of fibroglandular density. FINDINGS: Focal asymmetry and architectural distortion are identified in theposterior 4 to 5:00 position of the right breast, stable from all the previous exams,most likely surgical scar. Asymmetry is also identified in the retroareolararea, long-term stable. A skin scar is marked in the periareolar area of theright breast. A 5 mm focal asymmetry is new in the upper inner left breast, middledepth, best seen on the tomosynthesis views. This is adjacent to multiple oilcysts which can be seen on prior studies. CC and MLO spot compressiontomosynthesis views and full lateral tomosynthesis views of the left breast arerecommended for further assessment. No grouped microcalcifications are seen. Vascular calcifications arepresent. IMPRESSION: 1. New 5 mm focal left breast asymmetry, for which additional views are recommended. The patient will be called back. 2. Stable mammographic appearance of the right breast, including surgicalscar. No evidence of malignancy is seen. BI-RADS: Category 0: Incomplete - Need Additional Imaging Evaluation RECOMMENDATION(S): 1: Special mammographic view(s) needed LEFT Dictating Physician: ROSALBA FORREST MD Electronically Signed by: ROSALBA FORREST MD Dic Date/Time: 02/24/23 1643 Sign date/Time: 02/24/23 1646 Everton King MD IMG BI PROCEDURES Final Re sult from Last 3 Months or Most Recently Relevant to Health Maintenance Insurance Finomial * Guarantor: [employer] Account Type Relation to Patient Date of Phone Billing Address [place] [address] [facility] Advance Directives Documents on File Type Date Recorded Patient Customer Care Assistant Expl anation Advance Directives and Living Will 07/01/2024 2:49 PM ADV DIR-Healthcare Proxy [email or web address] Advance Directives and Living Will 07/01/2024 2:49 PM ADV DIR-MOLST [email or web address] Health Care Decision (hx) 09/30/2013 ADVANCE DIRECTIVE Health Care Decision (hx) 09/30/2013 ADVANCE DIRECTIVE Health Care Decision (hx) 09/30/2013 ADVANCE DIRECTIVE Health Care Decision (hx) 09/30/2013 ADVANCE DIRECTIVE Health Care Decision (hx) 09/30/2013 ADVANCE DIRECTIVE Health Care Decision (hx) 09/30/2013 ADVANCE DIRECTIVE Health Care Decision (hx) 09/30/2013 ADVANCE DIRECTIVE Health Care Decision (hx) 09/30/2013 ADVANCE DIRECTIVE Health Care Decision (hx) 09/30/2013 ADVANCE DIRECTIVE Health Care Decision (hx) 09/30/2013 ADVANCE DIRECTIVE Health Care Decision (hx) 09/30/2013 ADVANCE DIRECTIVE * No CPR/Do Not Intubate (Latest Code Status on File) Date Activated Date Inactivated Comments 07/29/2024 11:25 AM This code sta tus was ascertained in the following way: Code status discussion: per living will or healthcare instructions To update the patient's code status, place a code status order. Do not modify or discontinue any currently active code status orders. Care Teams Coloring Room Worker Relationship Specialty Start Date End Date Malgorzata Blanton NP [address] [place] [id number] PCP - General Family Medicine 04/15/24
== END 2024-09-07 17:09 | disposition home or self-care (01) ==
PROVIDERS: Registered Nurse Emergency; Emergency Provider Emergency Medicine
DX: S91.001A Unspecified open wound, right ankle, initial encounter (principal); M25.571 Pain in right ankle and joints of right foot; X58.XXXA Exposure to other specified factors, initial encounter; Y93.9 Activity, unspecified; Y92.9 Unspecified place or not applicable; Y99.8 Other external cause status; Z79.899 Other long term (current) drug therapy
CPT/HCPCS: 36415; 73600; 80053; 83605; 85025; 85652; 86140; 87040; 87070; 87205; 99283

== ENCOUNTER → 2024-09-07 15:31 | Outpatient (BNV) | payer OTHER, SELFPAY | PROVIDERS: Emergency Provider Emergency Medicine; Visit Provider Radiology Diagnostic Radiology | DX: S91.001A Unspecified open wound, right ankle, initial encounter (principal) | CPT/HCPCS: 73600 ==